=== PATIENT | male | born 1980 | race Caucasian/White ===

== ENCOUNTER 2021-11-22 19:47 | Emergency (ER) | payer OTHER ==
[2021-11-22 20:35] LABS: HEMOGLOBIN 11.6 gm/dl (14.0-17.5); RED BLOOD COUNT 3.88 M/UL (4.20-5.50); WHITE BLOOD COUNT 8.5 K/UL (4.5-11.0)
[2021-11-22 21:08] LABS: BUN/CREATININE RATIO 29 (0-10)
[2021-11-23 08:45] LABS: KPC-CARBAPENEM-RESISTANCE GENE Not Detected (Negative)
[2021-11-23 08:46] LABS: CANDIDA ALBICANS Not Detected (Negative); CANDIDA KRUSEI Not Detected (Negative); CANDIDA TROPICALIS Not Detected (Negative); ESCHERICHIA COLI Not Detected (Negative); HAEMOPHILUS INFLUENZAE Not Detected (Negative); KLEBSIELLA OXYTOCA Not Detected (Negative); KLEBSIELLA PNEUMONIAE Not Detected (Negative); PROTEUS Not Detected (Negative); PSEUDOMONAS AERUGINOSA Not Detected (Negative); SERRATIA MARCESANS Not Detected (Negative); STREP AGALACTIAE (GROUP B) Not Detected (Negative); STREP PYOGENES (GROUP A) Not Detected (Negative); STREPTOCOCCUS Not Detected (Negative); vanA/B (VANCOMYCIN RESIST GENE Not Detected (Negative)
[2021-11-23 10:24] LABS: STAPHYLOCOCCUS DETECTED (Negative); STAPHYLOCOCCUS AUREUS DETECTED (Negative)
== END 2021-11-23 04:50 | disposition short-term general hospital (02) ==
LOC: ER1 19:47
PROVIDERS: Family Medicine; Nurse Practitioner
DX: A41.9 Sepsis, unspecified organism (principal); R65.21 Severe sepsis with septic shock; I26.90 Septic pulmonary embolism without acute cor pulmonale; N12 Tubulo-interstitial nephritis, not specified as acute or chronic; D69.6 Thrombocytopenia, unspecified; E87.1 Hypo-osmolality and hyponatremia; F15.10 Other stimulant abuse, uncomplicated; F17.200 Nicotine dependence, unspecified, uncomplicated; Z51.81 Encounter for therapeutic drug level monitoring
CPT/HCPCS: 71045; 80053; 80076; 80307; 81001; 82550; 82553; 83605; 83690; 84484; 85025; 85610; 87040; 87077; 87086; 87150; 87186; 93005; 96361; 96374; 96375; 99285; J1885; J2405; J2543; J7040; Q9967